=== PATIENT | female | born 1980 | race Hispanic/Latino ===

== ENCOUNTER 2017-05-24 11:58 | Emergency (ER) | payer OTHER ==
[~2017-05-24] VITALS: Ht 154.9 cm; Wt 70.9 kg
[~2017-05-24 11:58] MED LIST: PREN1TAB47; iron
[2017-05-24 12:21] VITALS: BP 102/59; PULSE 79; RESP 18; O2SAT 100
--- NOTE | 2017-05-24 13:43 | ED.REPORT ---
HPI-Dyspnea / Wheezing Date of Service May 24, 2017 ED Provider: Gerson Cloud MD Patient is an otherwise healthy 36 year old female who is at 37 weeks gestation () who presents to the ED from the [facility] for SOB that increased with exertion onset this morning around 0600. On arrival at the [facility] she was 100% on room air with a respiratory rate of 18 and heart rate of 77. Associated symptoms include chest tightness, headache, and dizziness. She denies chest pain , cough, wheezing, fevers, or any other symptoms. She had similar symptoms a year ago. Her PRESCHOOL TEACHER'S ASSISTANT is Dr. Tran. Nursing Notes Stated Complaint: SOB Chief Complaint: Respiratory Complaints Nursing Notes Reviewed: Yes Allergies: Coded Allergies: No Known Allergies (Verified , 05/24/17) Miscellaneous Medications ([iron]) TAB Vit/Fe Fumarate/Fa-Expunged Drug, Do (-Expunged Drug, Do Not Renew!) 1 Tab Tablet General Time Seen by MD: 13:36 Chief Complaint Shortness of breath Hx Obtained From: Patient, Other family..., Legal Document Specialist Arrived By: Walk-in Sudden in Onset?: Yes Onset Occurred: 5 - 8 hours ago Symptom Duration: Since onset Similar Sx Previous: Yes Risk Factors CAD Risk Stratification No Diabetes mellitus, No Hyperlipidemia, No Hypertension, No Known CAD, No Smoking Risk factors reviewed PE Risk Stratification PregnancyNo , No Previous DVT, No Previous PE Risk factors reviewed Past Medical History Past Medical History Notes: Past Medical History Denies Past Surgical History None reported Smoking History Unknown if Ever Smoker Ambulatory Status Independent Review of Systems Review of Systems Note: +chest tightness -wheezing Constitutional: Denies: Fever Respiratory: Reports: Shortness of breath, Denies: Non-productive cough Cardiovascular: Denies: Chest pain Complete sys rev & neg: except as marked. Neurologic: Reports: Dizziness, Headache Physical Exam Initial Vital Signs Vital Signs (First) Date Time Temp Pulse Resp B/P Pulse Ox O2 Delivery O2 Flow Rate FiO2 05/24/17 12:21 37.0 79 18 102/59 100 Room Air Initial VS: Reviewed Head / Eyes: Atraumatic, Normocephalic Skin: Warm, Dry Neurologic: Alert, Oriented, Nonfocal Psychiatric: Mood/affect normal, Behavior normal, Normal thought content General/Constitutional: Awake, Alert, No acute distress, Well appearing, Well developed Neck: Supple, Full range of motion Respiratory / Chest: Breath sounds NL, Breath sounds = bilat, No respiratory distress Cardiovascular: Heart rate NL, Regular rhythm, Heart sounds NL, No gallop, No murmurs, No rubs Abdomen: Atraumatic Gravid abdomen Interpretation & Diagnostics Lab Results Interpretation Result Diagram: 05/24/17 1300 05/24/17 1300 Test 05/24/17 13:00 White Blood Count 9.4th/mm3 (3.8-10.1) Red Blood Count 3.91mil/mm3 (3.90-5.20) Hemoglobin 11.8g/dL (12.0-15.6) Hematocrit 35.2% (35.0-46.0) Mean Corpuscular Volume 90.0fL (81-100) Mean Corpuscular Hemoglobin 30.2pg (27.0-35.0) Mean Corpuscular Hemoglobin Concent 33.5% (32.0-37.0) Red Cell Distribution Width 13.3% (12.3-15.4) Platelet Count 270bil/L (150-400) Neutrophils (%) (Auto) 70.4% (40-74) Lymphocytes (%) (Auto) 18.9% (14-46) Monocytes (%) (Auto) 9.7% (4-12) Eosinophils (%) (Auto) 0.5% (0-5) Basophils (%) (Auto) 0.1% (0-3) Hold Purple Top Tube Received (Received) Hold Blue Top Tube Received (Received) Sodium Level 136mEq/L (134-144) Potassium Level 4.0mEq/L (3.5-5.2) Chloride Level 103mEq/L (97-108) Carbon Dioxide Level 17mmol/L (18-29) Blood Urea Nitrogen 8mg/dL (6-20) Creatinine 0.32mg/dL (0.57-1.00) Estimat Glomerular Filtration Rate 339mL/min (>59) Glucose Level 78mg/dL (60-99) Calcium Level 9.1mg/dL (8.5-10.1) Total Bilirubin 0.2mg/dL (0.0-1.2) Aspartate Amino Transf (AST/SGOT) 15U/L (0-50) Alanine Aminotransferase (ALT/SGPT) 10U/L (0-32) Alkaline Phosphatase 149U/L (25-150) Total Protein 6.9g/dL (6.4-8.4) Albumin 3.4g/dL (3.4-5.0) Hold Mccarley Top Tube Received (Received) ECG Interpretation ECG Interpretation: Sinus rate 63 No abnormalities Time: 14:07 Interpreted by: ED physician CT Chest Interpretation Study type: CT pulm angiogram Interpretation / Wet Read by: Interpret - Radiologist NL CT Chest Findings: Lungs normal, No pulmonary embolism Discharge & Departure Impression: Primary Impression: Dyspnea Dyspnea type: shortness of breath Qualified Code: R06.02 - Shortness of breath Disposition: Home Additional Instructions: Emergency Department evaluation included interview, examination, ECG, labs and CT angiogram of chest to rule out pulmonary embolism. No cause for shortness of breath was identified. Labs are reassuring. Get adequate fluids and activity as tolerated. Follow-up with obstetrics tomorrow as planned. Return to emergency department for increasing shortness of breath or chest pain. Referrals: [facility] (PCP) Scribe Attestation Portions of this note were transcribed by Abhay Smith. I, Dr. Cloud personally performed the history, physical exam and medical decision-making; I reviewed and confirmed the accuracy of the information in the transcribed note. Signed by: Abhay Smith 05/24/17, [id number] copies to: [facility] Donald L MD May 24, 2017 13:43 ABHAY SMITH May 24, 2017 13:51
[2017-05-24] MEDS ORDERED: 0.9% Sodium Chloride 1,000 ML IV ONE (13:57)
[2017-05-24 14:04] LABS: BASOPHILS % (AUTO) 0.1 % (0-3); EOSINOPHILS % (AUTO) 0.5 % (0-5); MONOCYTES % (AUTO) 9.7 % (4-12); Mean Corpuscular Hemoglobin 30.2 pg (27.0-35.0); NEUTROPHILS % (AUTO) 70.4 % (40-74); Platelet Count 270 bil/L (150-400)
--- NOTE | 2017-05-24 16:47 | DRSVH ---
PROCEDURE: CT ANGIO CHEST PULMONARY EMBOLISM ([id number]) INDICATIONS: dyspnea TECHNIQUE: After the administration of intravenous contrast, 2 mm thick sections acquired from the pulmonary api ilma to the posterior costophrenic angles. 3-dimensional maximum intensity projection (MIP) coronal a nd sagittal reformats were then acquired through the thorax. For radiation dose reduction, the follo wing was used: automated exposure control, adjustment of mA and/or kV according to patient size. COMPARISON: None. FINDINGS: Image quality: Excellent. Pulmonary arteries: Pulmonary arteries are normal in size, and demonstrate no intraluminal filling d efects to suggest central pulmonary embolism. Lungs and pleura: Lungs are clear. No pleural effusions or pneumothorax. Central and peripheral ai rways are patent. Mediastinum: Heart size is normal, without pericardial effusion. No mediastinal or hilar adenopathy . Thoracic aorta is normal in caliber and enhancement. Esophagus is normal in caliber, without hiat al hernia. Bones and chest wall: No suspicious bony lesions. Ribs and thoracic spine appear intact throughout. Thyroid gland is unremarkable. No axillary or supraclavicular adenopathy. Abdomen: Visualized upper abdominal solid organs appear normal in the early arterial phase of enhanc ement. IMPRESSION: No acute pulmonary embolus. No findings to explain shortness of breath. Dictated by: Soraida Stinson M.D. on 05/24/2017 at 16:43 Approved by: Soraida Stinson M.D. on 05/24/2017 at 16:45
[2017-05-24 17:24] VITALS: BP 100/49; PULSE 78; RESP 16; O2SAT 98
== END 2017-05-24 17:30 | disposition home or self-care (01) ==
LOC: SED 11:58
DX: O26.893 Other specified pregnancy related conditions, third trimester (principal); R06.02 Shortness of breath; R42 Dizziness and giddiness; R51 Headache; R07.89 Other chest pain; Z3A.37 37 weeks gestation of pregnancy
CPT/HCPCS: 71275; 80053; 85025; 93005; 96360; 99285; J7030; Q9967